=== PATIENT | male | born 1955 | race Caucasian/White ===

== ENCOUNTER 2017-09-26 10:15 | Inpatient (IN) ==
[~2017-09-26 10:15] MED LIST: TIROFIBAN 5,000 MCG/100 ML PREMIX IV SCH
[2017-09-26] MEDS ORDERED: ACETAMINOPHEN 325 MG TABLET PO PRN (11:10)
[2017-09-26] MEDS ORDERED: ZALEPLON 5 MG CAPSULE PO PRN (11:10)
[2017-09-26] MEDS ORDERED: NITROGLYCERIN SL 0.4 MG TABLET SL PRN (11:10)
[2017-09-26] MEDS ORDERED: ONDANSETRON 4 MG/2 ML VIAL IV PRN (11:10)
[2017-09-26] MEDS ORDERED: ALUMINUM/MAGNES/SIMETH MAX STR 30 ML UDCUP PO PRN (11:10)
[2017-09-26] MEDS ORDERED: SODIUM CHLORIDE 0.9% 1,000 ML IV SCH (11:30)
[2017-09-26] MEDS ORDERED: NICOTINE 14 MG/24 HR PATCH TRANSDERM PRN (12:01)
[2017-09-26] MEDS ORDERED: CLORAZEPATE 3.75 MG TABLET PO PRN (12:01)
[2017-09-26 12:51] LABS: Basophils % 0.2 % (0.0-0.8); Eosinophils % 0.1 % (0.00-10.9); Hematocrit 38.8 VOL% (42.0-52.0); Hemoglobin 14.1 GM/DL (14.0-18.0); Immature Granulocytes % 0.3 %; Immature Granulocytes Absolute 0.04 #; Lymphocytes # 0.9 10*3/uL (1.4-4.0); Lymphocytes % 7.6 % (21.2-54.2); Mean Corpuscular HGB Conc 36.3 GM/DL (32-36); Mean Corpuscular Hemoglobin 35 PG (27-34); Mean Corpuscular Volume 97.2 FL (87-102); Mean Platelet Volume 8.2 FL (9.6-12.0); Monocytes # 0.4 10*3/uL (0.11-0.8); Monocytes % 3.6 % (1.7-12.7); Neutrophils # 10.1 10*3/uL (1.4-7.4); Neutrophils % 88.2 % (38.7-73.9); Platelet Count 241 T/CUMM (130-400); Red Blood Count 3.99 MC/CUMM (3.8-5.5); White Blood Count 11.5 T/CUMM (4-12)
[2017-09-26] MEDS: FOLIC ACID 1 MG TABLET PO SCH (13:22)
[2017-09-26] MEDS: MULTIVITAMIN (CENTRUM) TABLET PO SCH (13:22)
[2017-09-26 13:24] LABS: CKMB % 10.8 %; Calcium 8.4 MG/DL (8.5-10.1); Potassium 4.4 MMOL/L (3.5-5.1)
[2017-09-26] MEDS: HYDROmorphone 2 MG/1 ML VIAL IV PRN ×2 (13:24→18:25)
[2017-09-26] MEDS ORDERED: METOPROLOL TARTRATE 50 MG TABLET PO ONE (13:29)
[2017-09-26 13:31] LABS: CKMB % 10.6 %; Troponin I Only 1.72 NG/ML (0.00-0.045)
[2017-09-26 13:33] LABS: Troponin I Only 1.75 NG/ML (0.00-0.045)
[2017-09-26] MEDS ORDERED: METOPROLOL TARTRATE 50 MG TABLET ONE (13:35)
[2017-09-26] MEDS: SOTALOL 80 MG TABLET PO SCH ×2 (14:22→20:49)
[2017-09-26] MEDS: DILTIAZEM 60 MG TABLET PO SCH ×2 (16:12→20:49)
[2017-09-26 20:14] LABS: CKMB % 11.2 %
[2017-09-26 20:24] LABS: Troponin I Only 10.7 NG/ML (0.00-0.045)
[2017-09-26] MEDS: ATORVASTATIN 40 MG TABLET PO SCH (20:48)
[2017-09-26] MEDS: TICAGRELOR 90 MG TABLET PO SCH (20:49)
[2017-09-26] MEDS ORDERED: METOPROLOL TARTRATE 50 MG TABLET PO SCH (21:00)
[2017-09-27] MEDS: HYDROmorphone 2 MG/1 ML VIAL IV PRN ×2 (00:31→09:54)
[2017-09-27 05:59] LABS: Basophils % 0.3 % (0.0-0.8); Eosinophils % 0.2 % (0.00-10.9); Hematocrit 36.1 VOL% (42.0-52.0); Hemoglobin 13.2 GM/DL (14.0-18.0); Immature Granulocytes % 0.3 %; Immature Granulocytes Absolute 0.03 #; Lymphocytes # 2.7 10*3/uL (1.4-4.0); Lymphocytes % 29.4 % (21.2-54.2); Mean Corpuscular HGB Conc 36.6 GM/DL (32-36); Mean Corpuscular Hemoglobin 35 PG (27-34); Mean Corpuscular Volume 96.8 FL (87-102); Monocytes # 0.8 10*3/uL (0.11-0.8); Monocytes % 8.5 % (1.7-12.7); Neutrophils # 5.7 10*3/uL (1.4-7.4); Neutrophils % 61.3 % (38.7-73.9); Platelet Count 243 T/CUMM (130-400); Red Blood Count 3.73 MC/CUMM (3.8-5.5); Red Cell Distribution Width 12.3 % (9.3-17.3); White Blood Count 9.3 T/CUMM (4-12)
[2017-09-27 06:37] LABS: Calcium 8.7 MG/DL (8.5-10.1); Osmolality,Calculated 274.7 MOS/KG (273-304); Potassium 4.2 MMOL/L (3.5-5.1); Risk Ratio 2.25
[2017-09-27 06:38] LABS: CKMB % 8.8 %
[2017-09-27 06:44] LABS: Troponin I Only 7.74 NG/ML (0.00-0.045)
[2017-09-27] MEDS: MULTIVITAMIN (CENTRUM) TABLET PO SCH (09:44)
[2017-09-27] MEDS: FOLIC ACID 1 MG TABLET PO SCH (09:44)
[2017-09-27] MEDS: DILTIAZEM 60 MG TABLET PO SCH ×4 (09:44→20:29)
[2017-09-27] MEDS: TICAGRELOR 90 MG TABLET PO SCH ×2 (09:44→20:29)
[2017-09-27] MEDS: amLODIPine 5 MG TABLET PO SCH (09:44)
[2017-09-27] MEDS: ASPIRIN EC 81 MG TABLET PO SCH (09:44)
[2017-09-27] MEDS: SOTALOL 80 MG TABLET PO SCH ×2 (09:44→20:29)
[2017-09-27] MEDS: PANTOPRAZOLE 40 MG TABLET PO SCH (09:45)
[2017-09-27] MEDS: APIXABAN 5 MG TABLET PO SCH ×2 (09:45→20:29)
[2017-09-27] MEDS: LOSARTAN 25 MG TABLET PO SCH (09:54)
[2017-09-27] MEDS ORDERED: DOCUSATE SODIUM 100 MG CAPSULE PO PRN (13:23)
[2017-09-27] MEDS ORDERED: diphenhydrAMINE CAP 25 MG CAPSULE PO PRN (13:34)
[2017-09-27] MEDS: ATORVASTATIN 40 MG TABLET PO SCH (20:29)
[2017-09-28] MEDS: ASPIRIN EC 81 MG TABLET PO SCH (08:26)
[2017-09-28] MEDS: SOTALOL 80 MG TABLET PO SCH ×2 (08:26→21:36)
[2017-09-28] MEDS: APIXABAN 5 MG TABLET PO SCH ×2 (08:26→21:36)
[2017-09-28] MEDS: amLODIPine 5 MG TABLET PO SCH (08:27)
[2017-09-28] MEDS: LOSARTAN 25 MG TABLET PO SCH (08:27)
[2017-09-28] MEDS: FOLIC ACID 1 MG TABLET PO SCH (08:27)
[2017-09-28] MEDS: MULTIVITAMIN (CENTRUM) TABLET PO SCH (08:27)
[2017-09-28] MEDS: DILTIAZEM 60 MG TABLET PO SCH (08:27)
[2017-09-28] MEDS: PANTOPRAZOLE 40 MG TABLET PO SCH (08:27)
[2017-09-28] MEDS: TICAGRELOR 90 MG TABLET PO SCH ×2 (08:27→21:36)
[2017-09-28] MEDS: amLODIPine 10 MG TABLET PO SCH (08:31)
[2017-09-28] MEDS: ATORVASTATIN 40 MG TABLET PO SCH (21:36)
[2017-09-29] MEDS: HYDROmorphone 2 MG/1 ML VIAL IV PRN (03:31)
[2017-09-29] MEDS: APIXABAN 5 MG TABLET PO SCH (09:01)
[2017-09-29] MEDS: MULTIVITAMIN (CENTRUM) TABLET PO SCH (09:05)
[2017-09-29] MEDS: TICAGRELOR 90 MG TABLET PO SCH (09:06)
[2017-09-29] MEDS: LOSARTAN 25 MG TABLET PO SCH (09:06)
[2017-09-29] MEDS: PANTOPRAZOLE 40 MG TABLET PO SCH (09:06)
[2017-09-29] MEDS: ASPIRIN EC 81 MG TABLET PO SCH (09:06)
[2017-09-29] MEDS: amLODIPine 10 MG TABLET PO SCH (09:06)
[2017-09-29] MEDS: FOLIC ACID 1 MG TABLET PO SCH (09:06)
[2017-09-29 11:16] VITALS: BP 129/78
[2017-09-29 12:15] LABS: Basophils % 0.2 % (0.0-0.8); Eosinophils # 0.1 10*3/uL (0.0-0.87); Eosinophils % 0.7 % (0.00-10.9); Hematocrit 36.8 VOL% (42.0-52.0); Hemoglobin 13.7 GM/DL (14.0-18.0); Immature Granulocytes % 0.2 %; Immature Granulocytes Absolute 0.02 #; Lymphocytes # 1.1 10*3/uL (1.4-4.0); Mean Corpuscular HGB Conc 37.2 GM/DL (32-36); Mean Corpuscular Hemoglobin 36 PG (27-34); Mean Corpuscular Volume 95.3 FL (87-102); Monocytes # 0.9 10*3/uL (0.11-0.8); Monocytes % 9.7 % (1.7-12.7); Neutrophils # 7.2 10*3/uL (1.4-7.4); Neutrophils % 77.2 % (38.7-73.9); Platelet Count 242 T/CUMM (130-400); Red Blood Count 3.86 MC/CUMM (3.8-5.5); Red Cell Distribution Width 11.9 % (9.3-17.3); White Blood Count 9.4 T/CUMM (4-12)
[2017-09-29 12:18] LABS: Calcium 8.4 MG/DL (8.5-10.1); Magnesium 2.1 MG/DL (1.8-2.4); Osmolality,Calculated 266.4 MOS/KG (273-304); Potassium 4.1 MMOL/L (3.5-5.1)
[2017-09-29] MEDS ORDERED: CARVEDILOL 3.125 MG TABLET PO SCH (21:00)
== END 2017-09-29 14:31 | disposition home or self-care (01) | DRG 247 ==
LOC: N.ICU 11:10 → N.CL 11:40 → N.ICU 11:47 → N.TELEN 09-27 18:31
PROVIDERS: ADMIT Internal Medicine Cardiovascular Disease; ATTEND Internal Medicine Cardiovascular Disease

== ENCOUNTER 2017-10-30 20:45 | Inpatient (IN) ==
[2017-10-30] MEDS ORDERED: MORPHINE 2 MG/1 ML SYRINGE IV STA ×2 (21:31→22:41)
[2017-10-30] MEDS ORDERED: ONDANSETRON 4 MG/2 ML VIAL IV STA (21:31)
[2017-10-30] MEDS ORDERED: ASPIRIN CHEW 81 MG TABLET PO STA (21:32)
[2017-10-30] MEDS ORDERED: NITROGLYCERIN 2% OINT 1 INCH/GM PACK TOP STA (21:32)
[2017-10-30] MEDS ORDERED: ONDANSETRON 4 MG/2 ML VIAL ONE (21:34)
[2017-10-30] MEDS ORDERED: MORPHINE 2 MG/1 ML SYRINGE ONE ×2 (21:34→22:46)
[2017-10-30] MEDS ORDERED: NITROGLYCERIN 2% OINT 1 INCH/GM PACK TOP ONE (21:34)
[2017-10-30] MEDS ORDERED: ASPIRIN 325 MG TABLET ONE (21:34)
[2017-10-30 21:44] LABS: Basophils % 0.2 % (0.0-0.8); Eosinophils # 0.1 10*3/uL (0.0-0.87); Eosinophils % 0.7 % (0.00-10.9); Hematocrit 33.3 VOL% (42.0-52.0); Hemoglobin 11.9 GM/DL (14.0-18.0); Immature Granulocytes % 0.4 %; Immature Granulocytes Absolute 0.06 #; Lymphocytes # 2.5 10*3/uL (1.4-4.0); Lymphocytes % 18.4 % (21.2-54.2); Mean Corpuscular HGB Conc 35.7 GM/DL (32-36); Mean Corpuscular Hemoglobin 34 PG (27-34); Mean Corpuscular Volume 95.1 FL (87-102); Mean Platelet Volume 8.5 FL (9.6-12.0); Monocytes # 1.4 10*3/uL (0.11-0.8); Monocytes % 10.3 % (1.7-12.7); Neutrophils # 9.4 10*3/uL (1.4-7.4); Platelet Count 321 T/CUMM (130-400); White Blood Count 13.4 T/CUMM (4-12)
[2017-10-30 22:15] LABS: Alanine Aminotransferase 13 U/L (16-61); Albumin 3.1 G/DL (3.4-5.0); Alkaline Phosphatase 109 U/L (45-117); Aspartate Amino Transferase 11 U/L (0-37); Blood Urea Nitrogen 12 MG/DL (7-18); Calcium 8.7 MG/DL (8.5-10.1); Glucose 113 MG/DL (74-106); Osmolality,Calculated 268.2 MOS/KG (273-304); Potassium 3.6 MMOL/L (3.5-5.1); Sodium 134 MMOL/L (136-145); Total Protein 7.4 G/DL (6.4-8.3); Troponin I Only < 0.015 NG/ML (0.00-0.045)
[2017-10-30] MEDS ORDERED: PANTOPRAZOLE 40 MG VIAL IV STA (22:40)
[2017-10-30] MEDS ORDERED: PANTOPRAZOLE 40 MG VIAL IV ONE (22:46)
[2017-10-31] MEDS ORDERED: ACETAMINOPHEN 325 MG TABLET PO PRN (00:18)
[2017-10-31] MEDS ORDERED: ONDANSETRON 4 MG/2 ML VIAL IV PRN (00:18)
[2017-10-31] MEDS ORDERED: NITROGLYCERIN SL 0.4 MG TABLET SL PRN ×2 (00:20→01:46)
[2017-10-31] MEDS: MORPHINE 2 MG/1 ML SYRINGE IV PRN ×5 (01:35→17:50)
[2017-10-31 02:05] LABS: Basophils % 0.2 % (0.0-0.8); Eosinophils # 0.1 10*3/uL (0.0-0.87); Eosinophils % 0.4 % (0.00-10.9); Hemoglobin 11.9 GM/DL (14.0-18.0); Immature Granulocytes % 0.5 %; Immature Granulocytes Absolute 0.07 #; Lymphocytes # 2.4 10*3/uL (1.4-4.0); Lymphocytes % 16.9 % (21.2-54.2); Mean Corpuscular HGB Conc 36.1 GM/DL (32-36); Mean Corpuscular Hemoglobin 35 PG (27-34); Mean Corpuscular Volume 95.7 FL (87-102); Mean Platelet Volume 8.4 FL (9.6-12.0); Monocytes # 1.3 10*3/uL (0.11-0.8); Monocytes % 9.6 % (1.7-12.7); Neutrophils # 10.2 10*3/uL (1.4-7.4); Neutrophils % 72.4 % (38.7-73.9); Platelet Count 321 T/CUMM (130-400); Red Blood Count 3.45 MC/CUMM (3.8-5.5); Red Cell Distribution Width 11.9 % (9.3-17.3)
[2017-10-31 02:39] LABS: Calcium 8.8 MG/DL (8.5-10.1); Osmolality,Calculated 269.1 MOS/KG (273-304); Potassium 3.8 MMOL/L (3.5-5.1)
[2017-10-31] MEDS: APIXABAN 5 MG TABLET PO SCH ×4 (02:41→21:41)
[2017-10-31] MEDS: CARVEDILOL 3.125 MG TABLET PO SCH ×4 (02:41→21:42)
[2017-10-31] MEDS: TICAGRELOR 90 MG TABLET PO SCH ×4 (02:41→21:41)
[2017-10-31] MEDS: ATORVASTATIN 40 MG TABLET PO SCH ×3 (02:41→21:41)
[2017-10-31] MEDS: LEVOFLOXACIN INJ 750 MG in PREMIX 1 EACH IV SCH (03:45)
[2017-10-31] MEDS: LOSARTAN 25 MG TABLET PO SCH (12:27)
[2017-10-31] MEDS: PANTOPRAZOLE 40 MG TABLET PO SCH (12:28)
[2017-10-31] MEDS: amLODIPine 10 MG TABLET PO SCH (12:28)
[2017-10-31] MEDS: ASPIRIN EC 81 MG TABLET PO SCH (12:28)
[2017-11-01] MEDS: MORPHINE 2 MG/1 ML SYRINGE IV PRN ×2 (00:17→09:26)
[2017-11-01] MEDS: LEVOFLOXACIN INJ 750 MG in PREMIX 1 EACH IV SCH (03:14)
[2017-11-01] MEDS: CARVEDILOL 3.125 MG TABLET PO SCH ×2 (09:25→21:59)
[2017-11-01] MEDS: amLODIPine 10 MG TABLET PO SCH (09:25)
[2017-11-01] MEDS: TICAGRELOR 90 MG TABLET PO SCH ×2 (09:25→21:59)
[2017-11-01] MEDS: PANTOPRAZOLE 40 MG TABLET PO SCH (09:25)
[2017-11-01] MEDS: APIXABAN 5 MG TABLET PO SCH ×2 (09:25→21:59)
[2017-11-01] MEDS: ASPIRIN EC 81 MG TABLET PO SCH (09:25)
[2017-11-01] MEDS: LOSARTAN 25 MG TABLET PO SCH (09:25)
[2017-11-01] MEDS: ATORVASTATIN 40 MG TABLET PO SCH (21:59)
[2017-11-02] MEDS: LEVOFLOXACIN INJ 750 MG in PREMIX 1 EACH IV SCH (04:06)
[2017-11-02] MEDS: amLODIPine 10 MG TABLET PO SCH (08:42)
[2017-11-02] MEDS: CARVEDILOL 3.125 MG TABLET PO SCH (08:42)
[2017-11-02] MEDS: PANTOPRAZOLE 40 MG TABLET PO SCH (08:42)
[2017-11-02] MEDS: APIXABAN 5 MG TABLET PO SCH (08:42)
[2017-11-02] MEDS: ASPIRIN EC 81 MG TABLET PO SCH (08:42)
[2017-11-02] MEDS: TICAGRELOR 90 MG TABLET PO SCH (08:42)
[2017-11-02 08:45] VITALS: BP 128/60
[2017-11-02] MEDS ORDERED: LOSARTAN 25 MG TABLET PO SCH (09:00)
== END 2017-11-02 11:33 | disposition home or self-care (01) | DRG 195 ==
LOC: N.ED 20:45 → INTOOBSV 10-31 00:09 → N.EDINP 10-31 00:09 → N.TELES 10-31 00:53 → N.5E 11-01 15:24
PROVIDERS: ADMIT Internal Medicine; ATTEND Internal Medicine

== ENCOUNTER 2021-09-30 14:39 | Inpatient (IN) ==
[2021-09-30] MEDS ORDERED: AMIODARONE 150 MG/3 ML VIAL ONE ×4 (14:44→16:04)
[2021-09-30] MEDS ORDERED: AMIODARONE 150 MG/3 ML VIAL IV STA ×2 (14:45→14:48)
[2021-09-30] MEDS ORDERED: AMIODARONE 450 MG/9 ML VIAL IV ONE (14:50)
[2021-09-30] MEDS ORDERED: ONDANSETRON 4 MG/2 ML VIAL IV STA (14:52)
[2021-09-30] MEDS ORDERED: MORPHINE 2 MG/1 ML SYRINGE IV STA (14:52)
[2021-09-30] MEDS ORDERED: MORPHINE 2 MG/1 ML SYRINGE ONE ×2 (14:52)
[2021-09-30] MEDS ORDERED: HEPARIN 5,000 UNIT/1 ML VIAL ONE (14:52)
[2021-09-30] MEDS ORDERED: ONDANSETRON 4 MG/2 ML VIAL ONE (14:52)
[2021-09-30] MEDS ORDERED: HEPARIN 1,000 UNIT/1 ML VIAL IV STA (14:52)
[2021-09-30] MEDS ORDERED: fentaNYL 100 MCG/2 ML VIAL ONE (14:56)
[2021-09-30] MEDS ORDERED: MIDAZOLAM 2 MG/2 ML VIAL ONE (14:56)
[2021-09-30] MEDS ORDERED: SIMETHICONE CHEW 125 MG TABLET PO PRN (15:11)
[2021-09-30] MEDS ORDERED: diphenhydrAMINE CAP 25 MG CAPSULE PO PRN (15:11)
[2021-09-30] MEDS ORDERED: hydrALAZINE 20 MG/1 ML VIAL IV PRN (15:11)
[2021-09-30] MEDS ORDERED: ACETAMINOPHEN 325 MG TABLET PO PRN (15:11)
[2021-09-30] MEDS ORDERED: BISACODYL 5 MG TABLET PO PRN (15:11)
[2021-09-30] MEDS ORDERED: LACTULOSE 20 GM/30 ML UDCUP PO PRN (15:11)
[2021-09-30] MEDS ORDERED: CALCIUM CARBONATE CHEW 500 MG TABLET PO PRN (15:11)
[2021-09-30] MEDS ORDERED: ALUMINUM/MAGNES/SIMETH MAX STR 30 ML UDCUP PO PRN (15:11)
[2021-09-30 15:16] LABS: Basophils % 0.2 % (0.0-0.8); Eosinophils % 0.2 % (0.00-10.9); Hematocrit 40.3 VOL% (42.0-52.0); Hemoglobin 14.7 GM/DL (14.0-18.0); Immature Granulocytes % 0.7 %; Immature Granulocytes Absolute 0.07 #; Lymphocytes # 1.5 10*3/uL (1.4-4.0); Lymphocytes % 14.5 % (21.2-54.2); Mean Corpuscular HGB Conc 36.5 GM/DL (32-36); Mean Corpuscular Volume 98.3 FL (87-102); Mean Platelet Volume 9.1 FL (9.6-12.0); Monocytes % 8.9 % (1.7-12.7); Neutrophils % 75.5 % (38.7-73.9); Platelet Count 258 T/CUMM (130-400); Red Cell Distribution Width 12.1 % (9.3-17.3); White Blood Count 10.2 T/CUMM (4-12)
[2021-09-30] MEDS ORDERED: NICOTINE 14 MG/24 HR PATCH TRANSDERM PRN (15:22)
[2021-09-30] MEDS ORDERED: NICOTINE 21 MG/24 HR PATCH TRANSDERM PRN (15:22)
[2021-09-30 15:30] LABS: PT Patient Result 11.5 SECS (10.5-12.0); Partial Thromboplastin Time 29.3 SECS (23.8-32.1)
[2021-09-30] MEDS ORDERED: TIROFIBAN 5,000 MCG/100 ML PREMIX IV ONE (15:30)
[2021-09-30 15:35] LABS: Albumin 2.7 G/DL (3.4-5.0); Bilirubin,Total 0.5 MG/DL (0.20-1.00); CKMB % 1.5 %; Calcium 8.6 MG/DL (8.5-10.1); Osmolality,Calculated 254.5 MOS/KG (273-304); Total Protein 7.2 G/DL (6.4-8.2)
[2021-09-30 15:40] LABS: High Sensitive Troponin I* 25643.7 ng/L (0-78)
[2021-09-30 15:43] LABS: Risk Ratio 3.49; Thyroid Stimulating Hormone 1.84 uIU/ml (0.358-3.74); VLDL Cholesterol 27.4 MG/DL
[2021-09-30] MEDS ORDERED: METOPROLOL TARTRATE 5 MG/5 ML VIAL IV ONE (16:06)
[2021-09-30] MEDS ORDERED: POTASSIUM CHLORIDE RIDER 10 MEQ/100 ML PREMIX IV PRN (16:11)
[2021-09-30] MEDS ORDERED: MAGNESIUM SULF RIDER 4 GM/100 ML PREMIX IV PRN (16:20)
[2021-09-30] MEDS ORDERED: MAGNESIUM SULF RIDER 2 GM/50 ML PREMIX IV PRN (16:20)
[2021-09-30] MEDS ORDERED: AMIODARONE INJ 450 MG in DEXTROSE 5% 241 ML IV SCH ×2 (16:30→17:00)
[2021-09-30] MEDS ORDERED: SODIUM CHLORIDE 0.9% 1,000 ML IV SCH (16:30)
[2021-09-30] MEDS ORDERED: POTASSIUM CHLORIDE 20 MEQ PACK PO ONE (16:31)
[2021-09-30] MEDS ORDERED: DOPamine 800 MG/250 ML PREMIX IV ONE (16:36)
[2021-09-30] MEDS: DOBUTamine 500 MG/250 ML PREMIX IV PRN (16:44)
[2021-09-30] MEDS ORDERED: DOBUTamine 500 MG/250 ML PREMIX IV ONE (16:58)
[2021-09-30] MEDS ORDERED: HEPARIN 5,000 UNIT/1 ML VIAL IV STA (17:52)
[2021-09-30] MEDS: carvediloL 3.125 MG TABLET PO SCH ×2 (18:19→22:01)
[2021-09-30 18:27] VITALS: BP 116/91
[2021-09-30 18:29] LABS: ABG Base Excess -2.5 MMOL/L (-2.5-2.5); ABG HCO3 22.2 MMOL/L (20-26); ABG Oxygen Saturation 93.9 % (95-100); ABG PH 7.416 (7.35-7.45); ABG PO2 70.4 MM HG (80-95); ABG TCO2 18.7 MMOL/L (23-27); Glucose Heart Surgery 190 MG/DL (74-106); Hematocrit Heart Surgery 38.3 PERCENT (42-52); Hemoglobin Heart Surgery 12.4 G/DL (14.0-18.0); Potassium Heart/CVR 3.1 MMOL/L (3.5-5.1)
[2021-09-30] MEDS: METOPROLOL TARTRATE 5 MG/5 ML VIAL IV SCH ×2 (18:36→18:37)
[2021-09-30] MEDS: MORPHINE 2 MG/1 ML SYRINGE IV PRN (19:39)
[2021-09-30] MEDS ORDERED: METOPROLOL TARTRATE 25 MG TABLET PO SCH (21:00)
[2021-09-30] MEDS ORDERED: AMIODARONE 200 MG TABLET PO SCH (21:00)
[2021-09-30] MEDS: ALBUTEROL/IPRATROPIUM 3 ML NEB RESP TX SCH (21:07)
[2021-09-30 21:12] LABS: CKMB % 1.6 %
[2021-09-30 21:13] LABS: High Sensitive Troponin I* 20320.6 ng/L (0-78)
[2021-09-30] MEDS: ONDANSETRON 4 MG/2 ML VIAL IV PRN (21:55)
[2021-09-30] MEDS ORDERED: POTASSIUM CHLORIDE RIDER 20 MEQ/100 ML PREMIX IV ONE (21:55)
[2021-09-30] MEDS: ATORVASTATIN 40 MG TABLET PO SCH (22:01)
[2021-09-30] MEDS: POTASSIUM CHLORIDE RIDER 20 MEQ/100 ML PREMIX IV PRN (22:07)
[2021-09-30] MEDS: AMIODARONE INJ 450 MG in DEXTROSE 5% 241 ML IV SCH ×2 (22:54→23:37)
[2021-10-01] MEDS: POTASSIUM CHLORIDE RIDER 20 MEQ/100 ML PREMIX IV PRN (00:01)
[2021-10-01] MEDS: ALBUTEROL/IPRATROPIUM 3 ML NEB RESP TX SCH ×2 (00:12→07:25)
[2021-10-01 00:33] LABS: CKMB % 1.8 %; High Sensitive Troponin I* 19673.5 ng/L (0-78)
[2021-10-01] MEDS: ONDANSETRON 4 MG/2 ML VIAL IV PRN (01:25)
[2021-10-01 02:48] LABS: Bacteria,Urine Occasional /HPF (Few); Bilirubin,Urine Negative (Negative); Blood, Urine Negative (Negative); Glucose,Urine (UA) Negative (Negative); Ketones,Urine Negative (Negative); Nitrite,Urine Negative (Negative); Protein,Urine 100 MG/DL; RBC,Urine 29 /HPF (0-4); Squamous Epithelial Cell,Urine Occasional /HPF (0-10); Urine Appearance CLEAR (Clear); Urine Color Amber (Yellow)
[2021-10-01 02:55] LABS: Urine Specific Gravity > 1.035 (1.001-1.035)
[2021-10-01] MEDS: carvediloL 3.125 MG TABLET PO SCH ×3 (04:32→20:53)
[2021-10-01 04:55] LABS: Basophils % 0.2 % (0.0-0.8); Eosinophils % 0.3 % (0.00-10.9); Hematocrit 32.6 VOL% (42.0-52.0); Hemoglobin 11.6 GM/DL (14.0-18.0); Immature Granulocytes % 0.5 %; Immature Granulocytes Absolute 0.05 #; Lymphocytes # 1.6 10*3/uL (1.4-4.0); Lymphocytes % 16.5 % (21.2-54.2); Mean Corpuscular HGB Conc 35.6 GM/DL (32-36); Mean Corpuscular Volume 99.1 FL (87-102); Monocytes % 9.2 % (1.7-12.7); Neutrophils % 73.3 % (38.7-73.9); Platelet Count 214 T/CUMM (130-400); Red Blood Count 3.29 MC/CUMM (3.8-5.5); Red Cell Distribution Width 12.3 % (9.3-17.3); White Blood Count 9.6 T/CUMM (4-12)
[2021-10-01 05:10] LABS: Calcium 7.8 MG/DL (8.5-10.1); Osmolality,Calculated 259.9 MOS/KG (273-304); Potassium 4.2 MMOL/L (3.5-5.1); Risk Ratio 3.27; VLDL Cholesterol 22.2 MG/DL
[2021-10-01] MEDS: DOBUTamine 500 MG/250 ML PREMIX IV PRN ×3 (06:07→13:31)
[2021-10-01] MEDS: PANTOPRAZOLE 40 MG TABLET PO SCH (08:30)
[2021-10-01] MEDS: ASPIRIN EC 81 MG TABLET PO SCH (08:30)
[2021-10-01] MEDS ORDERED: BENZONATATE 100 MG CAPSULE PO PRN (08:56)
[2021-10-01] MEDS: LOSARTAN 25 MG TABLET PO SCH (09:17)
[2021-10-01] MEDS: AMIODARONE 200 MG TABLET PO SCH ×2 (09:17→20:53)
[2021-10-01 10:03] LABS: High Sensitive Troponin I* 17996.3 ng/L (0-78)
[2021-10-01] MEDS: LEVALBUTEROL 0.63 MG/3 ML NEB RESP TX SCH ×2 (13:43→19:29)
[2021-10-01] MEDS: PHENYLEPHRINE DRIP 40 MG/250 ML PREMIX IV PRN (16:39)
[2021-10-01] MEDS: AMIODARONE INJ 450 MG in DEXTROSE 5% 241 ML IV SCH (16:50)
[2021-10-01 17:12] LABS: Barbiturates Screen,Urine Negative (Negative); Benzodiazepines Screen,Urine Positive (Negative); Cannabinoid Screen,Urine Positive (Negative); Opiate Screen,Urine Positive (Negative); Phencyclidine Screen,Urine Negative (Negative)
[2021-10-01] MEDS: ATORVASTATIN 40 MG TABLET PO SCH (20:53)
[2021-10-02] MEDS: LEVALBUTEROL 0.63 MG/3 ML NEB RESP TX SCH ×4 (00:56→19:01)
[2021-10-02] MEDS: DOBUTamine 500 MG/250 ML PREMIX IV PRN ×2 (01:16→14:51)
[2021-10-02] MEDS: PHENYLEPHRINE DRIP 40 MG/250 ML PREMIX IV PRN ×3 (04:28→20:00)
[2021-10-02 04:33] LABS: Basophils % 0.1 % (0.0-0.8); Eosinophils # 0.1 10*3/uL (0.0-0.87); Eosinophils % 0.7 % (0.00-10.9); Hematocrit 31.8 VOL% (42.0-52.0); Immature Granulocytes % 0.5 %; Immature Granulocytes Absolute 0.05 #; Lymphocytes # 2.2 10*3/uL (1.4-4.0); Lymphocytes % 23.1 % (21.2-54.2); Mean Corpuscular HGB Conc 34.6 GM/DL (32-36); Mean Corpuscular Volume 101.6 FL (87-102); Mean Platelet Volume 9.3 FL (9.6-12.0); Monocytes % 8.3 % (1.7-12.7); Neutrophils % 67.3 % (38.7-73.9); Platelet Count 229 T/CUMM (130-400); Red Blood Count 3.13 MC/CUMM (3.8-5.5); Red Cell Distribution Width 12.4 % (9.3-17.3); White Blood Count 9.6 T/CUMM (4-12)
[2021-10-02 04:36] LABS: Osmolality,Calculated 257.2 MOS/KG (273-304); Potassium 4.3 MMOL/L (3.5-5.1)
[2021-10-02] MEDS: PANTOPRAZOLE 40 MG TABLET PO SCH (08:39)
[2021-10-02] MEDS: LOSARTAN 25 MG TABLET PO SCH (08:39)
[2021-10-02] MEDS: carvediloL 3.125 MG TABLET PO SCH ×2 (08:40→21:50)
[2021-10-02] MEDS: AMIODARONE 200 MG TABLET PO SCH ×2 (08:40→21:50)
[2021-10-02] MEDS: ASPIRIN EC 81 MG TABLET PO SCH (08:41)
[2021-10-02] MEDS ORDERED: ENOXAPARIN 40 MG/0.4 ML SYRINGE SUBCUT SCH (09:00)
[2021-10-02] MEDS: CLOPIDOGREL 75 MG TABLET PO SCH (10:43)
[2021-10-02] MEDS: ONDANSETRON 4 MG/2 ML VIAL IV PRN (11:01)
[2021-10-02] MEDS ORDERED: FUROSEMIDE 40 MG/4 ML VIAL IV ONE (11:35)
[2021-10-02] MEDS: ATORVASTATIN 40 MG TABLET PO SCH (21:50)
[2021-10-03] MEDS: LEVALBUTEROL 0.63 MG/3 ML NEB RESP TX SCH ×4 (00:34→19:00)
[2021-10-03 02:48] LABS: Basophils % 0.1 % (0.0-0.8); Eosinophils # 0.1 10*3/uL (0.0-0.87); Eosinophils % 0.5 % (0.00-10.9); Hematocrit 32.9 VOL% (42.0-52.0); Hemoglobin 11.4 GM/DL (14.0-18.0); Immature Granulocytes % 0.6 %; Immature Granulocytes Absolute 0.06 #; Lymphocytes # 1.9 10*3/uL (1.4-4.0); Lymphocytes % 19.6 % (21.2-54.2); Mean Corpuscular HGB Conc 34.7 GM/DL (32-36); Mean Corpuscular Volume 100.6 FL (87-102); Mean Platelet Volume 9.1 FL (9.6-12.0); Monocytes % 8.7 % (1.7-12.7); Neutrophils % 70.5 % (38.7-73.9); Platelet Count 261 T/CUMM (130-400); Red Blood Count 3.27 MC/CUMM (3.8-5.5); Red Cell Distribution Width 12.3 % (9.3-17.3); White Blood Count 9.6 T/CUMM (4-12)
[2021-10-03] MEDS ORDERED: ASPIRIN CHEW 81 MG TABLET PO ONE (02:56)
[2021-10-03] MEDS ORDERED: NITROGLYCERIN SL 0.4 MG TABLET SL PRN (02:56)
[2021-10-03] MEDS ORDERED: MORPHINE 2 MG/1 ML SYRINGE IV PRN (02:56)
[2021-10-03] MEDS ORDERED: CLORAZEPATE 3.75 MG TABLET PO PRN ×2 (03:09→12:51)
[2021-10-03 03:10] LABS: Calcium 7.7 MG/DL (8.5-10.1); Osmolality,Calculated 250.8 MOS/KG (273-304); Potassium 4.4 MMOL/L (3.5-5.1)
[2021-10-03] MEDS: PHENYLEPHRINE DRIP 40 MG/250 ML PREMIX IV PRN (03:30)
[2021-10-03] MEDS: carvediloL 3.125 MG TABLET PO SCH ×2 (08:03→20:21)
[2021-10-03] MEDS: ASPIRIN EC 81 MG TABLET PO SCH (08:03)
[2021-10-03] MEDS: AMIODARONE 200 MG TABLET PO SCH ×2 (08:03→20:21)
[2021-10-03] MEDS: PANTOPRAZOLE 40 MG TABLET PO SCH (08:03)
[2021-10-03] MEDS: CLOPIDOGREL 75 MG TABLET PO SCH (08:03)
[2021-10-03] MEDS: LOSARTAN 25 MG TABLET PO SCH (08:03)
[2021-10-03 09:18] LABS: Potassium,Urine Random 25 MMOL/L
[2021-10-03 09:31] LABS: Sodium, Urine Random < 5.0 MMOL/L
[2021-10-03] MEDS: ATORVASTATIN 40 MG TABLET PO SCH (20:21)
[2021-10-03] MEDS: MORPHINE 2 MG/1 ML SYRINGE IV PRN (20:32)
[2021-10-04] MEDS: LEVALBUTEROL 0.63 MG/3 ML NEB RESP TX SCH ×4 (01:11→23:00)
[2021-10-04 04:31] LABS: Basophils % 0.2 % (0.0-0.8); Eosinophils # 0.1 10*3/uL (0.0-0.87); Eosinophils % 1.1 % (0.00-10.9); Hematocrit 34.4 VOL% (42.0-52.0); Hemoglobin 11.8 GM/DL (14.0-18.0); Immature Granulocytes % 0.5 %; Immature Granulocytes Absolute 0.05 #; Lymphocytes # 2.6 10*3/uL (1.4-4.0); Lymphocytes % 28.1 % (21.2-54.2); Mean Corpuscular HGB Conc 34.3 GM/DL (32-36); Mean Corpuscular Volume 101.2 FL (87-102); Mean Platelet Volume 8.8 FL (9.6-12.0); Monocytes % 6.2 % (1.7-12.7); Neutrophils % 63.9 % (38.7-73.9); Platelet Count 287 T/CUMM (130-400); Red Cell Distribution Width 12.3 % (9.3-17.3); White Blood Count 9.2 T/CUMM (4-12)
[2021-10-04 04:45] LABS: Calcium 8.1 MG/DL (8.5-10.1); Osmolality,Calculated 258.2 MOS/KG (273-304); Potassium 4.7 MMOL/L (3.5-5.1)
[2021-10-04] MEDS: CLOPIDOGREL 75 MG TABLET PO SCH (08:31)
[2021-10-04] MEDS: LOSARTAN 25 MG TABLET PO SCH (08:32)
[2021-10-04] MEDS: PANTOPRAZOLE 40 MG TABLET PO SCH (08:32)
[2021-10-04] MEDS: AMIODARONE 200 MG TABLET PO SCH ×2 (08:32→20:41)
[2021-10-04] MEDS: ASPIRIN EC 81 MG TABLET PO SCH (08:32)
[2021-10-04] MEDS: carvediloL 3.125 MG TABLET PO SCH ×2 (08:32→20:41)
[2021-10-04] MEDS ORDERED: FUROSEMIDE 40 MG/4 ML VIAL IV ONE (09:10)
[2021-10-04] MEDS: predniSONE 20 MG TABLET PO SCH (09:29)
[2021-10-04] MEDS ORDERED: LEVALBUTEROL 1.25 MG/3 ML NEB RESP TX ONE (16:28)
[2021-10-04] MEDS: ATORVASTATIN 40 MG TABLET PO SCH (20:41)
[2021-10-04] MEDS: MORPHINE 2 MG/1 ML SYRINGE IV PRN (20:46)
[2021-10-05 05:59] LABS: Basophils % 0.2 % (0.0-0.8); Eosinophils % 0.2 % (0.00-10.9); Hemoglobin 11.9 GM/DL (14.0-18.0); Immature Granulocytes % 0.7 %; Immature Granulocytes Absolute 0.08 #; Lymphocytes # 2.8 10*3/uL (1.4-4.0); Lymphocytes % 23.5 % (21.2-54.2); Mean Corpuscular Volume 99.7 FL (87-102); Mean Platelet Volume 9.1 FL (9.6-12.0); Monocytes % 6.5 % (1.7-12.7); Neutrophils % 68.9 % (38.7-73.9); Platelet Count 378 T/CUMM (130-400); Red Blood Count 3.41 MC/CUMM (3.8-5.5); Red Cell Distribution Width 12.2 % (9.3-17.3); White Blood Count 11.9 T/CUMM (4-12)
[2021-10-05 06:22] LABS: Calcium 8.4 MG/DL (8.5-10.1); Osmolality,Calculated 256.6 MOS/KG (273-304); Potassium 4.9 MMOL/L (3.5-5.1)
[2021-10-05] MEDS: LEVALBUTEROL 0.63 MG/3 ML NEB RESP TX SCH (08:40)
[2021-10-05] MEDS: LOSARTAN 25 MG TABLET PO SCH (08:49)
[2021-10-05] MEDS: ASPIRIN EC 81 MG TABLET PO SCH (08:49)
[2021-10-05] MEDS: predniSONE 20 MG TABLET PO SCH (08:49)
[2021-10-05] MEDS: CLOPIDOGREL 75 MG TABLET PO SCH (08:49)
[2021-10-05] MEDS: AMIODARONE 200 MG TABLET PO SCH ×2 (08:49→20:08)
[2021-10-05] MEDS: PANTOPRAZOLE 40 MG TABLET PO SCH (08:49)
[2021-10-05] MEDS: carvediloL 3.125 MG TABLET PO SCH ×2 (08:49→20:07)
[2021-10-05] MEDS ORDERED: NITROGLYCERIN 2% OINT 1 INCH/GM PACK TOP ONE (15:34)
[2021-10-05] MEDS: ALBUTEROL 2.5 MG/3 ML NEB RESP TX PRN (15:38)
[2021-10-05] MEDS ORDERED: SODIUM CHLORIDE 0.9% 250 ML IV ONE ×2 (16:16→16:45)
[2021-10-05] MEDS: ZALEPLON 5 MG CAPSULE PO PRN (20:07)
[2021-10-05] MEDS: ATORVASTATIN 40 MG TABLET PO SCH (20:08)
[2021-10-06 06:41] LABS: Basophils % 0.1 % (0.0-0.8); Eosinophils % 0.2 % (0.00-10.9); Hematocrit 34.6 VOL% (42.0-52.0); Hemoglobin 11.8 GM/DL (14.0-18.0); Immature Granulocytes % 0.9 %; Immature Granulocytes Absolute 0.11 #; Lymphocytes # 2.7 10*3/uL (1.4-4.0); Lymphocytes % 21.6 % (21.2-54.2); Mean Corpuscular HGB Conc 34.1 GM/DL (32-36); Mean Corpuscular Volume 101.5 FL (87-102); Mean Platelet Volume 9.2 FL (9.6-12.0); Monocytes % 6.6 % (1.7-12.7); Neutrophils % 70.6 % (38.7-73.9); Platelet Count 401 T/CUMM (130-400); Red Blood Count 3.41 MC/CUMM (3.8-5.5); Red Cell Distribution Width 12.3 % (9.3-17.3); White Blood Count 12.6 T/CUMM (4-12)
[2021-10-06 06:59] LABS: Calcium 8.4 MG/DL (8.5-10.1); Osmolality,Calculated 257.5 MOS/KG (273-304); Potassium 5.2 MMOL/L (3.5-5.1)
[2021-10-06] MEDS: PANTOPRAZOLE 40 MG TABLET PO SCH (08:20)
[2021-10-06] MEDS: LOSARTAN 25 MG TABLET PO SCH (08:21)
[2021-10-06] MEDS: predniSONE 20 MG TABLET PO SCH (08:21)
[2021-10-06] MEDS: AMIODARONE 200 MG TABLET PO SCH ×2 (08:21→20:20)
[2021-10-06] MEDS: carvediloL 3.125 MG TABLET PO SCH ×2 (08:21→20:21)
[2021-10-06] MEDS: ASPIRIN EC 81 MG TABLET PO SCH (08:21)
[2021-10-06] MEDS: CLOPIDOGREL 75 MG TABLET PO SCH (08:21)
[2021-10-06 14:00] LABS: Calcium 8.2 MG/DL (8.5-10.1); Osmolality,Calculated 255.9 MOS/KG (273-304); Potassium 5.7 MMOL/L (3.5-5.1)
[2021-10-06] MEDS: ALBUTEROL 2.5 MG/3 ML NEB RESP TX PRN (14:00)
[2021-10-06] MEDS ORDERED: FUROSEMIDE 40 MG/4 ML VIAL IV ONE (14:12)
[2021-10-06] MEDS ORDERED: SODIUM POLYSTYRENE SULFATE 15 GM/60 ML BOTTLE PO ONE (14:12)
[2021-10-06] MEDS: ISOSORBIDE MONONITRATE 30 MG TABLET PO SCH (15:59)
[2021-10-06] MEDS: ALBUTEROL/IPRATROPIUM 3 ML NEB RESP TX SCH (20:00)
[2021-10-06] MEDS: ATORVASTATIN 40 MG TABLET PO SCH (20:20)
[2021-10-06] MEDS: ZALEPLON 5 MG CAPSULE PO PRN (20:21)
[2021-10-07] MEDS: ALBUTEROL/IPRATROPIUM 3 ML NEB RESP TX SCH ×2 (01:00→07:47)
[2021-10-07 06:20] LABS: Basophils % 0.1 % (0.0-0.8); Eosinophils % 0.2 % (0.00-10.9); Hematocrit 35.4 VOL% (42.0-52.0); Hemoglobin 12.5 GM/DL (14.0-18.0); Immature Granulocytes % 0.9 %; Immature Granulocytes Absolute 0.13 #; Lymphocytes # 3.4 10*3/uL (1.4-4.0); Lymphocytes % 22.5 % (21.2-54.2); Mean Corpuscular HGB Conc 35.3 GM/DL (32-36); Mean Corpuscular Volume 99.4 FL (87-102); Mean Platelet Volume 9.3 FL (9.6-12.0); Monocytes % 6.3 % (1.7-12.7); Platelet Count 465 T/CUMM (130-400); Red Blood Count 3.56 MC/CUMM (3.8-5.5); Red Cell Distribution Width 12.3 % (9.3-17.3); White Blood Count 15.2 T/CUMM (4-12)
[2021-10-07 06:46] LABS: Calcium 8.4 MG/DL (8.5-10.1); Osmolality,Calculated 260.4 MOS/KG (273-304); Potassium 3.9 MMOL/L (3.5-5.1)
[2021-10-07] MEDS: ASPIRIN EC 81 MG TABLET PO SCH (08:04)
[2021-10-07] MEDS: AMIODARONE 200 MG TABLET PO SCH (08:04)
[2021-10-07] MEDS: LOSARTAN 25 MG TABLET PO SCH (08:04)
[2021-10-07] MEDS: ISOSORBIDE MONONITRATE 30 MG TABLET PO SCH (08:05)
[2021-10-07] MEDS: predniSONE 20 MG TABLET PO SCH (08:05)
[2021-10-07] MEDS: CLOPIDOGREL 75 MG TABLET PO SCH (08:05)
[2021-10-07] MEDS: PANTOPRAZOLE 40 MG TABLET PO SCH (08:05)
[2021-10-07] MEDS: carvediloL 3.125 MG TABLET PO SCH (08:06)
[2021-10-07] MEDS ORDERED: FUROSEMIDE 40 MG/4 ML VIAL IV ONE (08:11)
[2021-10-07] MEDS ORDERED: carvediloL 6.25 MG TABLET PO SCH (09:00)
[2021-10-07] MEDS ORDERED: FUROSEMIDE 40 MG TABLET PO SCH (16:00)
== END 2021-10-07 12:00 | disposition home or self-care (01) | DRG 250 ==
LOC: EDBD → EDUNIT# → N.ED 14:39 → N.CC 15:05 → N.EDINP 15:11 → N.CC 17:56
PROVIDERS: ADMIT Internal Medicine Cardiovascular Disease; ATTEND Internal Medicine Cardiovascular Disease
PROC: CLCCHCL (ICD-10-PCS; 2021-09-30 15:15)

== ENCOUNTER 2021-10-10 00:49 | Inpatient (IN) ==
[2021-10-10] MEDS ORDERED: FUROSEMIDE 100 MG/10 ML VIAL IV STA (01:31)
[2021-10-10] MEDS ORDERED: FUROSEMIDE 40 MG/4 ML VIAL IV STA (01:37)
[2021-10-10 01:48] LABS: Basophils % 0.1 % (0.0-0.8); Eosinophils # 0.1 10*3/uL (0.0-0.87); Eosinophils % 0.3 % (0.00-10.9); Hematocrit 36.9 VOL% (42.0-52.0); Hemoglobin 12.9 GM/DL (14.0-18.0); Immature Granulocytes % 0.7 %; Immature Granulocytes Absolute 0.11 #; Lymphocytes # 2.3 10*3/uL (1.4-4.0); Lymphocytes % 14.2 % (21.2-54.2); Mean Corpuscular Volume 99.2 FL (87-102); Mean Platelet Volume 9.1 FL (9.6-12.0); Monocytes % 6.1 % (1.7-12.7); Neutrophils % 78.6 % (38.7-73.9); Platelet Count 511 T/CUMM (130-400); Red Blood Count 3.72 MC/CUMM (3.8-5.5); Red Cell Distribution Width 12.7 % (9.3-17.3); White Blood Count 16.5 T/CUMM (4-12)
[2021-10-10 02:06] LABS: Albumin 2.5 G/DL (3.4-5.0); Bilirubin,Total 0.4 MG/DL (0.20-1.00); Calcium 8.2 MG/DL (8.5-10.1); Osmolality,Calculated 268.7 MOS/KG (273-304); Potassium 3.4 MMOL/L (3.5-5.1); Total Protein 6.2 G/DL (6.4-8.2)
[2021-10-10 02:14] LABS: ABG Base Excess -0.1 MMOL/L (-2.5-2.5); ABG HCO3 20.5 MMOL/L (20-26); ABG Oxygen Saturation 99.2 % (95-100); ABG PCO2 24.3 MM HG (35-48); ABG PH 7.544 (7.35-7.45); ABG PO2 150.1 MM HG (80-95); ABG TCO2 21.2 MMOL/L (23-27)
[2021-10-10] MEDS ORDERED: DEXTROSE 50% 25 GM/50 ML VIAL IV PRN (03:27)
[2021-10-10] MEDS ORDERED: hydrALAZINE 20 MG/1 ML VIAL IV PRN (03:27)
[2021-10-10] MEDS ORDERED: ACETAMINOPHEN 325 MG TABLET PO PRN (03:27)
[2021-10-10] MEDS ORDERED: ONDANSETRON 4 MG/2 ML VIAL IV PRN (03:27)
[2021-10-10] MEDS ORDERED: GLUCAGON 1 MG VIAL IM PRN (03:27)
[2021-10-10] MEDS ORDERED: POTASSIUM CHLORIDE 20 MEQ TABLET PO ONE (03:52)
[2021-10-10] MEDS ORDERED: POTASSIUM CHLORIDE 20 MEQ TABLET PO PRN (03:52)
[2021-10-10 04:22] LABS: Bilirubin,Urine Negative (Negative); Blood, Urine Negative (Negative); Glucose,Urine (UA) Negative (Negative); Hyaline Casts,Urine 3 /LPF (0-3); Ketones,Urine Negative (Negative); Mucus,Urine Occasional /LPF (Occasional); Nitrite,Urine Negative (Negative); Protein,Urine Negative; RBC,Urine 1 /HPF (0-4); Squamous Epithelial Cell,Urine Occasional /HPF (0-10); Urine Appearance CLEAR (Clear); Urine Color Straw (Yellow); Urine Specific Gravity 1.005 (1.001-1.035); Urine Urobilinogen < 2.0 EU/DL (0.2-1.0)
[2021-10-10 05:45] LABS: Hepatitis B Core IgM Quant 0.05 Index; Hepatitis B Surface Ag Quant < 0.10 Index; Hepatitis B Surface Ag Result Non-Reactive (NonReactive); Hepatitis C Virus Ab Quant 0.03 Index; Hepatitis C Virus Ab Result Non-Reactive (NonReactive)
[2021-10-10] MEDS ORDERED: ONDANSETRON 4 MG/2 ML VIAL IV ONE (06:49)
[2021-10-10] MEDS ORDERED: MORPHINE 2 MG/1 ML SYRINGE IV ONE (06:49)
[2021-10-10] MEDS ORDERED: LEVOFLOXACIN INJ 750 MG/150 ML PREMIX IV SCH ×2 (07:00→09:00)
[2021-10-10] MEDS ORDERED: FUROSEMIDE 40 MG/4 ML VIAL IV SCH (08:00)
[2021-10-10] MEDS: PANTOPRAZOLE 40 MG TABLET PO SCH (08:38)
[2021-10-10] MEDS: ASPIRIN EC 81 MG TABLET PO SCH (08:38)
[2021-10-10] MEDS: CLOPIDOGREL 75 MG TABLET PO SCH (08:38)
[2021-10-10] MEDS: ENOXAPARIN 40 MG/0.4 ML SYRINGE SUBCUT SCH (08:38)
[2021-10-10] MEDS: AMIODARONE 200 MG TABLET PO SCH ×2 (08:38→20:25)
[2021-10-10] MEDS: carvediloL 6.25 MG TABLET PO SCH ×2 (08:38→19:25)
[2021-10-10] MEDS: ISOSORBIDE MONONITRATE 30 MG TABLET PO SCH (08:38)
[2021-10-10] MEDS ORDERED: MAGNESIUM SULF RIDER 2 GM/50 ML PREMIX IV ONE (09:26)
[2021-10-10 09:31] LABS: ABG Base Excess 2.4 MMOL/L (-2.5-2.5); ABG HCO3 26.4 MMOL/L (20-26); ABG Oxygen Saturation 89.8 % (95-100); ABG PCO2 36.1 MM HG (35-48); ABG PH 7.464 (7.35-7.45); ABG PO2 61.1 MM HG (80-95); ABG TCO2 22.6 MMOL/L (23-27)
[2021-10-10] MEDS ORDERED: NITROGLYCERIN DRIP 50 MG/250 ML BOTTLE IV PRN (09:48)
[2021-10-10] MEDS: SPIRONOLACTONE 25 MG TABLET PO SCH (10:35)
[2021-10-10] MEDS: FUROSEMIDE INJ 200 MG in SODIUM CHLORIDE 0.9% 80 ML IV SCH (11:35)
[2021-10-10] MEDS: MORPHINE 2 MG/1 ML SYRINGE IV PRN ×2 (12:38→19:39)
[2021-10-10] MEDS: MAGNESIUM OXIDE 400 MG TABLET PO SCH ×2 (15:20→20:25)
[2021-10-10] MEDS: POTASSIUM CHLORIDE 20 MEQ TABLET PO SCH ×2 (15:20→20:24)
[2021-10-10] MEDS: ATORVASTATIN 40 MG TABLET PO SCH (20:25)
[2021-10-11 05:05] LABS: Basophils % 0.1 % (0.0-0.8); Eosinophils # 0.1 10*3/uL (0.0-0.87); Eosinophils % 0.7 % (0.00-10.9); Hematocrit 37.5 VOL% (42.0-52.0); Hemoglobin 12.7 GM/DL (14.0-18.0); Immature Granulocytes % 0.4 %; Immature Granulocytes Absolute 0.05 #; Lymphocytes # 2.3 10*3/uL (1.4-4.0); Lymphocytes % 20.4 % (21.2-54.2); Mean Corpuscular HGB Conc 33.9 GM/DL (32-36); Mean Corpuscular Volume 101.1 FL (87-102); Monocytes % 6.3 % (1.7-12.7); Neutrophils % 72.1 % (38.7-73.9); Platelet Count 470 T/CUMM (130-400); Red Blood Count 3.71 MC/CUMM (3.8-5.5); Red Cell Distribution Width 12.7 % (9.3-17.3); White Blood Count 11.3 T/CUMM (4-12)
[2021-10-11 05:26] LABS: Albumin 2.2 G/DL (3.4-5.0); Bilirubin,Total 0.9 MG/DL (0.20-1.00); Osmolality,Calculated 270.4 MOS/KG (273-304); Potassium 3.4 MMOL/L (3.5-5.1); Total Protein 6.2 G/DL (6.4-8.2)
[2021-10-11] MEDS ORDERED: POTASSIUM CHLORIDE 20 MEQ TABLET PO ONE (07:35)
[2021-10-11] MEDS: MAGNESIUM OXIDE 400 MG TABLET PO SCH ×3 (08:42→20:42)
[2021-10-11] MEDS: POTASSIUM CHLORIDE 20 MEQ TABLET PO SCH ×3 (08:43→20:42)
[2021-10-11] MEDS: ISOSORBIDE MONONITRATE 30 MG TABLET PO SCH (08:43)
[2021-10-11] MEDS: ASPIRIN EC 81 MG TABLET PO SCH (08:44)
[2021-10-11] MEDS: CLOPIDOGREL 75 MG TABLET PO SCH (08:44)
[2021-10-11] MEDS: SPIRONOLACTONE 25 MG TABLET PO SCH (08:44)
[2021-10-11] MEDS: AMIODARONE 200 MG TABLET PO SCH ×2 (08:44→20:42)
[2021-10-11] MEDS: carvediloL 6.25 MG TABLET PO SCH ×2 (08:44→15:59)
[2021-10-11] MEDS: PANTOPRAZOLE 40 MG TABLET PO SCH (08:44)
[2021-10-11] MEDS: ENOXAPARIN 40 MG/0.4 ML SYRINGE SUBCUT SCH (08:45)
[2021-10-11] MEDS ORDERED: metOLazone 5 MG TABLET PO SCH (09:00)
[2021-10-11] MEDS: FUROSEMIDE INJ 200 MG in SODIUM CHLORIDE 0.9% 80 ML IV SCH (10:51)
[2021-10-11] MEDS: MORPHINE 2 MG/1 ML SYRINGE IV PRN ×2 (14:00→17:59)
[2021-10-11] MEDS: DOCUSATE SODIUM 100 MG CAPSULE PO SCH ×2 (16:45→20:42)
[2021-10-11] MEDS: ATORVASTATIN 40 MG TABLET PO SCH (20:42)
[2021-10-12] MEDS: FUROSEMIDE INJ 200 MG in SODIUM CHLORIDE 0.9% 80 ML IV SCH (05:41)
[2021-10-12 06:50] LABS: Basophils % 0.1 % (0.0-0.8); Eosinophils # 0.1 10*3/uL (0.0-0.87); Eosinophils % 0.7 % (0.00-10.9); Hematocrit 38.1 VOL% (42.0-52.0); Hemoglobin 12.9 GM/DL (14.0-18.0); Immature Granulocytes % 0.6 %; Immature Granulocytes Absolute 0.07 #; Lymphocytes # 1.7 10*3/uL (1.4-4.0); Lymphocytes % 14.1 % (21.2-54.2); Mean Corpuscular HGB Conc 33.9 GM/DL (32-36); Mean Platelet Volume 8.9 FL (9.6-12.0); Monocytes % 5.4 % (1.7-12.7); Neutrophils % 79.1 % (38.7-73.9); Platelet Count 495 T/CUMM (130-400); Red Blood Count 3.81 MC/CUMM (3.8-5.5); Red Cell Distribution Width 12.8 % (9.3-17.3); White Blood Count 12.2 T/CUMM (4-12)
[2021-10-12 07:25] LABS: Albumin 2.5 G/DL (3.4-5.0); Bilirubin,Total 1.7 MG/DL (0.20-1.00); Calcium 9.1 MG/DL (8.5-10.1); Osmolality,Calculated 267.8 MOS/KG (273-304); Potassium 3.3 MMOL/L (3.5-5.1); Total Protein 6.9 G/DL (6.4-8.2)
[2021-10-12] MEDS: ENOXAPARIN 40 MG/0.4 ML SYRINGE SUBCUT SCH (08:38)
[2021-10-12] MEDS: PANTOPRAZOLE 40 MG TABLET PO SCH (08:38)
[2021-10-12] MEDS: AMIODARONE 200 MG TABLET PO SCH ×2 (08:38→20:41)
[2021-10-12] MEDS: ASPIRIN EC 81 MG TABLET PO SCH (08:38)
[2021-10-12] MEDS: CLOPIDOGREL 75 MG TABLET PO SCH (08:39)
[2021-10-12] MEDS: DOCUSATE SODIUM 100 MG CAPSULE PO SCH ×2 (08:39→20:41)
[2021-10-12] MEDS: POTASSIUM CHLORIDE 20 MEQ TABLET PO SCH ×3 (08:39→20:41)
[2021-10-12] MEDS: MAGNESIUM OXIDE 400 MG TABLET PO SCH ×3 (08:39→20:40)
[2021-10-12] MEDS: carvediloL 6.25 MG TABLET PO SCH ×3 (08:39→16:00)
[2021-10-12] MEDS: ISOSORBIDE MONONITRATE 30 MG TABLET PO SCH (08:39)
[2021-10-12] MEDS: SPIRONOLACTONE 25 MG TABLET PO SCH (08:39)
[2021-10-12] MEDS: MORPHINE 2 MG/1 ML SYRINGE IV PRN ×2 (17:25→23:54)
[2021-10-12] MEDS: ATORVASTATIN 40 MG TABLET PO SCH (20:41)
[2021-10-13] MEDS: FUROSEMIDE INJ 200 MG in SODIUM CHLORIDE 0.9% 80 ML IV SCH (00:43)
[2021-10-13 06:17] LABS: Basophils % 0.2 % (0.0-0.8); Eosinophils # 0.2 10*3/uL (0.0-0.87); Eosinophils % 1.8 % (0.00-10.9); Hematocrit 38.6 VOL% (42.0-52.0); Hemoglobin 13.4 GM/DL (14.0-18.0); Immature Granulocytes % 0.4 %; Immature Granulocytes Absolute 0.04 #; Lymphocytes # 1.9 10*3/uL (1.4-4.0); Lymphocytes % 20.7 % (21.2-54.2); Mean Corpuscular HGB Conc 34.7 GM/DL (32-36); Mean Corpuscular Volume 99.2 FL (87-102); Monocytes % 6.9 % (1.7-12.7); Platelet Count 482 T/CUMM (130-400); Red Blood Count 3.89 MC/CUMM (3.8-5.5); Red Cell Distribution Width 12.8 % (9.3-17.3); White Blood Count 9.2 T/CUMM (4-12)
[2021-10-13 06:40] LABS: Calcium 9.3 MG/DL (8.5-10.1); Osmolality,Calculated 267.9 MOS/KG (273-304); Potassium 3.2 MMOL/L (3.5-5.1)
[2021-10-13] MEDS: ENOXAPARIN 40 MG/0.4 ML SYRINGE SUBCUT SCH (08:20)
[2021-10-13] MEDS: carvediloL 6.25 MG TABLET PO SCH ×2 (08:21→16:03)
[2021-10-13] MEDS: PANTOPRAZOLE 40 MG TABLET PO SCH (08:21)
[2021-10-13] MEDS: ASPIRIN EC 81 MG TABLET PO SCH (08:21)
[2021-10-13] MEDS: MAGNESIUM OXIDE 400 MG TABLET PO SCH ×3 (08:22→21:10)
[2021-10-13] MEDS: ISOSORBIDE MONONITRATE 30 MG TABLET PO SCH (08:22)
[2021-10-13] MEDS: CLOPIDOGREL 75 MG TABLET PO SCH (08:22)
[2021-10-13] MEDS: POTASSIUM CHLORIDE 20 MEQ TABLET PO SCH ×3 (08:22→21:10)
[2021-10-13] MEDS: SPIRONOLACTONE 25 MG TABLET PO SCH (08:22)
[2021-10-13] MEDS: AMIODARONE 200 MG TABLET PO SCH ×2 (08:22→21:10)
[2021-10-13] MEDS: DOCUSATE SODIUM 100 MG CAPSULE PO SCH ×2 (08:22→21:10)
[2021-10-13] MEDS: MORPHINE 2 MG/1 ML SYRINGE IV PRN (11:35)
[2021-10-13] MEDS: FUROSEMIDE 40 MG/4 ML VIAL IV SCH (16:05)
[2021-10-13] MEDS ORDERED: POLYETHYLENE GLYCOL POWDER 17 GM PACK PO PRN (18:44)
[2021-10-13] MEDS: ATORVASTATIN 40 MG TABLET PO SCH (21:10)
[2021-10-14] MEDS: MORPHINE 2 MG/1 ML SYRINGE IV PRN (00:42)
[2021-10-14 05:43] LABS: Basophils % 0.4 % (0.0-0.8); Eosinophils # 0.2 10*3/uL (0.0-0.87); Eosinophils % 1.8 % (0.00-10.9); Hematocrit 40.6 VOL% (42.0-52.0); Hemoglobin 14.4 GM/DL (14.0-18.0); Immature Granulocytes % 0.4 %; Immature Granulocytes Absolute 0.04 #; Lymphocytes # 2.4 10*3/uL (1.4-4.0); Lymphocytes % 23.5 % (21.2-54.2); Mean Corpuscular HGB Conc 35.5 GM/DL (32-36); Mean Corpuscular Volume 98.1 FL (87-102); Mean Platelet Volume 8.8 FL (9.6-12.0); Monocytes % 6.8 % (1.7-12.7); Neutrophils % 67.1 % (38.7-73.9); Platelet Count 474 T/CUMM (130-400); Red Blood Count 4.14 MC/CUMM (3.8-5.5); Red Cell Distribution Width 12.7 % (9.3-17.3); White Blood Count 10.2 T/CUMM (4-12)
[2021-10-14 05:56] LABS: Osmolality,Calculated 266.9 MOS/KG (273-304); Potassium 3.6 MMOL/L (3.5-5.1)
[2021-10-14] MEDS: CLOPIDOGREL 75 MG TABLET PO SCH (09:00)
[2021-10-14] MEDS: MAGNESIUM OXIDE 400 MG TABLET PO SCH (09:00)
[2021-10-14] MEDS: POTASSIUM CHLORIDE 20 MEQ TABLET PO SCH ×3 (09:01→20:42)
[2021-10-14] MEDS: ISOSORBIDE MONONITRATE 30 MG TABLET PO SCH ×2 (09:01→09:05)
[2021-10-14] MEDS: PANTOPRAZOLE 40 MG TABLET PO SCH (09:02)
[2021-10-14] MEDS: carvediloL 6.25 MG TABLET PO SCH ×2 (09:03→16:46)
[2021-10-14] MEDS: DOCUSATE SODIUM 100 MG CAPSULE PO SCH ×2 (09:03→20:42)
[2021-10-14] MEDS: SPIRONOLACTONE 25 MG TABLET PO SCH (09:04)
[2021-10-14] MEDS: ASPIRIN EC 81 MG TABLET PO SCH (09:05)
[2021-10-14] MEDS: ENOXAPARIN 40 MG/0.4 ML SYRINGE SUBCUT SCH (09:06)
[2021-10-14] MEDS: FUROSEMIDE 40 MG/4 ML VIAL IV SCH (09:07)
[2021-10-14] MEDS: AMIODARONE 200 MG TABLET PO SCH (09:10)
[2021-10-14] MEDS: ATORVASTATIN 40 MG TABLET PO SCH (20:42)
[2021-10-15 06:00] LABS: Basophils % 0.3 % (0.0-0.8); Eosinophils # 0.2 10*3/uL (0.0-0.87); Eosinophils % 2.3 % (0.00-10.9); Hematocrit 38.6 VOL% (42.0-52.0); Hemoglobin 13.1 GM/DL (14.0-18.0); Immature Granulocytes % 0.3 %; Immature Granulocytes Absolute 0.03 #; Lymphocytes # 2.7 10*3/uL (1.4-4.0); Lymphocytes % 30.6 % (21.2-54.2); Mean Corpuscular HGB Conc 33.9 GM/DL (32-36); Mean Platelet Volume 8.9 FL (9.6-12.0); Neutrophils % 57.5 % (38.7-73.9); Platelet Count 462 T/CUMM (130-400); Red Cell Distribution Width 12.6 % (9.3-17.3); White Blood Count 8.8 T/CUMM (4-12)
[2021-10-15 06:25] LABS: Osmolality,Calculated 263.1 MOS/KG (273-304); Potassium 3.8 MMOL/L (3.5-5.1)
[2021-10-15] MEDS ORDERED: FUROSEMIDE 40 MG TABLET PO SCH (09:00)
[2021-10-15] MEDS: PANTOPRAZOLE 40 MG TABLET PO SCH (09:52)
[2021-10-15] MEDS: POTASSIUM CHLORIDE 20 MEQ TABLET PO SCH (09:52)
[2021-10-15] MEDS: CLOPIDOGREL 75 MG TABLET PO SCH (09:52)
[2021-10-15] MEDS: SPIRONOLACTONE 25 MG TABLET PO SCH (09:52)
[2021-10-15] MEDS: ISOSORBIDE MONONITRATE 30 MG TABLET PO SCH (09:52)
[2021-10-15] MEDS: DOCUSATE SODIUM 100 MG CAPSULE PO SCH (09:52)
[2021-10-15] MEDS: ASPIRIN EC 81 MG TABLET PO SCH (09:53)
[2021-10-15] MEDS: AMIODARONE 200 MG TABLET PO SCH (09:53)
[2021-10-15] MEDS: carvediloL 6.25 MG TABLET PO SCH (09:53)
[2021-10-15] MEDS: ENOXAPARIN 40 MG/0.4 ML SYRINGE SUBCUT SCH (09:54)
[2021-10-15] MEDS: MAGNESIUM OXIDE 400 MG TABLET PO SCH (09:54)
[2021-10-15 12:25] VITALS: BP 120/83
== END 2021-10-15 12:51 | disposition home or self-care (01) | DRG 280 ==
LOC: EDUNIT# → EDBD → N.ED 00:49 → SUATTDRO 03:28 → N.EDINP 03:28 → N.TELES 13:37
PROVIDERS: ADMIT Internal Medicine; ATTEND Internal Medicine